=== PATIENT | female | born 1945 | race Asian ===

== ENCOUNTER 2017-04-12 12:57 | Emergency (ER) | payer OTHER ==
[~2017-04-12] VITALS: Ht 165.1 cm; Wt 69.9 kg
[~2017-04-12 12:57] MED LIST: ACET-689 PO; AMBIEN5 MG PO; BENICAR HCT1 TA2 PO; CLOP75TA2 PO; FURO20TA67 PO; GABA300C2 PO; GLIM4TAB PO; INDO25CA21 PO; INSU100P SC; LANTUS SOLOSTAR SC; MECL25TA84 PO; METO25TA4 PO; METO50TA27 PO; NEXIUM40 M1 PO; OMEPRAZOLE40 MG PO; PRAS10TA PO; PRAVACHOL20 MG PO; RANO500T PO; REQUIP0.25 MG OR; TRADJENTA5 M1 OR
[2017-04-12 14:58] LABS: PLATELET COUNT 452 K/uL (152-353)
[2017-04-12 15:08] LABS: POTASSIUM 4.6 mmol/L (3.6-5.2)
[2017-04-12 21:24] VITALS: BP 142/84; TEMP 97.7
== END 2017-04-12 21:31 | disposition home or self-care (01) ==
LOC: ED 12:57
PROVIDERS: Family Medicine
DX: E11.65 Type 2 diabetes mellitus with hyperglycemia (principal); I10 Essential (primary) hypertension; Z98.890 Other specified postprocedural states
CPT/HCPCS: 80053; 81002; 85027; 96360; 96372; 99284; J1815

== ENCOUNTER 2017-04-14 16:41 | Outpatient (CLI) | payer OTHER | END 2017-04-14 16:50 | disposition short-term general hospital (02) | LOC: AMB 16:41 | DX: R47.81 Slurred speech (principal); G81.94 Hemiplegia, unspecified affecting left nondominant side; R29.810 Facial weakness; R41.82 Altered mental status, unspecified | CPT/HCPCS: A0425; A0427 ==